=== PATIENT | female | born 1970 | race Caucasian/White ===

== ENCOUNTER 2022-03-14 09:34 | Observation (INO) ==
[2022-03-14] MEDS ORDERED: NS 0.9% 1000 ml BAG 1,000 ML IV ONE (11:22)
[2022-03-14] MEDS ORDERED: Ondansetron 4 mg VIAL 2 MG/ML 2 ml VIAL IV ONE (11:22)
[2022-03-14 11:55] LABS: ABS Basophils 0.1 10^3/ul (0-0.2); ABS Eosinophils 0.1 10^3/ul (0-0.6); ABS Lymphocytes 1.6 10^3/ul (1.0-4.8); ABS Neutrophils 13.2 10^3/ul (1.5-7.7); Eosinophil % 0.5 %; Hematocrit 35 % (35-47); Hemoglobin 11.5 g/dL (12.0-16.0); Mean Corpuscular HGB Conc 33 g/dL (31-36); Mean Corpuscular Hemoglobin 28 pg (27-31); Mean Corpuscular Volume 84 fL (80-97); Mean Platelet Volume 8.2 fL (7.4-10.4); Nucleated Red Blood Cells % 0.1; Platelet Count 310 10^3/uL (150-450); Red Blood Count 4.17 10^6 /uL (3.70-4.87); Red Cell Distribution Width 14 % (10-15)
[2022-03-14 11:57] LABS: Urine Appearance Clear; Urine Bilirubin Negative (Negative); Urine Blood Negative (Negative); Urine Color Yellow; Urine Glucose Negative (Negative); Urine Ketones Negative (Negative); Urine Nitrite Negative (Negative); Urine Protein Negative (Negative); Urine Specific Gravity 1.009 (1.002-1.030); Urine Urobilinogen Negative (Negative)
[2022-03-14 12:57] LABS: ALT 26 U/L (7-52); AST 28 U/L (13-39); Albumin 4.1 g/dL (3.2-5.2); Albumin/Globulin Ratio 1.5 (1-3); Alkaline Phosphatase 84 U/L (35-149); Anion Gap 4 mmol/L (2-11); Blood Urea Nitrogen 8 mg/dL (6-24); CO2 Carbon Dioxide 28 mmol/L (22-32); Calcium 8.7 mg/dL (8.6-10.3); Chloride 104 mmol/L (101-111); Globulin 2.8 g/dL (2-4); Glucose 93 mg/dL (70-100); Lipase < 10 U/L (11.0-82.0); Potassium 3.6 mmol/L (3.5-5.0); Sodium 136 mmol/L (135-145); Total Protein 6.9 g/dL (6.4-8.9); eGFR CKD-EPI 104.7 (>60)
[2022-03-14 13:03] LABS: HCG Pregnancy < 0.60 mIU/mL
[2022-03-14] MEDS ORDERED: Iohexol 300 (CONTRAST) 10 ML SDV IV ONE (13:03)
[2022-03-14] MEDS ORDERED: Piperacillin/Tazobac ADVAN 3.375 GM in NS 0.9% 100 ml BAG 100 ML IV ONE (14:58)
[2022-03-14] MEDS ORDERED: Ondansetron 4 mg VIAL 2 MG/ML 2 ml VIAL IV PRN (15:50)
[2022-03-14] MEDS ORDERED: Zosyn per Pharmacy NOTE FOLLOW UP SCH (16:00)
[2022-03-14] MEDS: NS 0.9% 1000 ml BAG 1,000 ML IV SCH (16:19)
[2022-03-14] MEDS ORDERED: ZOSYN 3.375 GM per EXTENDED INFUSION IV ONE (19:30)
[2022-03-14] MEDS: ZOSYN 3.375 GM Q8H per EXTENDED INFUSION IV SCH (20:42)
[2022-03-15] MEDS: ZOSYN 3.375 GM Q8H per EXTENDED INFUSION IV SCH ×3 (03:48→19:40)
[2022-03-15 05:26] LABS: ABS Eosinophils 0.3 10^3/ul (0-0.6); ABS Lymphocytes 1.7 10^3/ul (1.0-4.8); ABS Monocytes 0.6 10^3/ul (0-0.8); Hematocrit 30 % (35-47); Lymphocyte % 17.4 %; Mean Corpuscular HGB Conc 34 g/dL (31-36); Mean Corpuscular Hemoglobin 28 pg (27-31); Mean Corpuscular Volume 84 fL (80-97); Platelet Count 257 10^3/uL (150-450); Red Blood Count 3.55 10^6 /uL (3.70-4.87); Red Cell Distribution Width 14 % (10-15); White Blood Count 9.5 10^3/uL (3.5-10.8)
[2022-03-15 06:20] LABS: Calcium 7.8 mg/dL (8.6-10.3); Potassium 3.8 mmol/L (3.5-5.0); eGFR CKD-EPI 102.2 (>60)
[2022-03-15] MEDS: Cholecalciferol (VIT D3) 1,000 unit TAB PO SCH (08:47)
[2022-03-15] MEDS: NS 0.9% 1000 ml BAG 1,000 ML IV SCH (08:49)
[2022-03-15] MEDS: Polyethylene Glycol 3350 17 GM PACKET PO SCH (12:32)
[2022-03-15] MEDS: Morphine 2 MG/ML SYRINGE IV PRN (12:33)
[2022-03-16] MEDS: NS 0.9% 1000 ml BAG 1,000 ML IV SCH ×2 (01:37→15:06)
[2022-03-16] MEDS: ZOSYN 3.375 GM Q8H per EXTENDED INFUSION IV SCH ×3 (03:36→20:52)
[2022-03-16 06:05] LABS: ABS Basophils 0.1 10^3/ul (0-0.2); ABS Eosinophils 0.3 10^3/ul (0-0.6); ABS Lymphocytes 1.7 10^3/ul (1.0-4.8); ABS Monocytes 0.5 10^3/ul (0-0.8); ABS Neutrophils 5.9 10^3/ul (1.5-7.7); Hematocrit 29 % (35-47); Hemoglobin 9.8 g/dL (12.0-16.0); Lymphocyte % 19.7 %; Mean Corpuscular HGB Conc 33 g/dL (31-36); Mean Corpuscular Hemoglobin 28 pg (27-31); Mean Corpuscular Volume 84 fL (80-97); Mean Platelet Volume 8.1 fL (7.4-10.4); Platelet Count 274 10^3/uL (150-450); Red Cell Distribution Width 15 % (10-15); White Blood Count 8.4 10^3/uL (3.5-10.8)
[2022-03-16 06:38] LABS: Calcium 8.2 mg/dL (8.6-10.3); Potassium 4.1 mmol/L (3.5-5.0); eGFR CKD-EPI 104.7 (>60)
[2022-03-16] MEDS: Cholecalciferol (VIT D3) 1,000 unit TAB PO SCH (08:47)
[2022-03-16] MEDS: Polyethylene Glycol 3350 17 GM PACKET PO SCH (08:48)
[2022-03-16] MEDS ORDERED: Magnesium Hydroxide LIQ 30 ML UDC PO PRN (14:46)
[2022-03-16] MEDS: Morphine 2 MG/ML SYRINGE IV PRN (20:47)
[2022-03-16] MEDS ORDERED: Senna TAB 8.6 mg TAB PO SCH (21:00)
[2022-03-17] MEDS: ZOSYN 3.375 GM Q8H per EXTENDED INFUSION IV SCH (03:59)
[2022-03-17 07:38] LABS: ABS Basophils 0.1 10^3/ul (0-0.2); ABS Eosinophils 0.3 10^3/ul (0-0.6); ABS Lymphocytes 1.3 10^3/ul (1.0-4.8); ABS Monocytes 0.4 10^3/ul (0-0.8); ABS Neutrophils 6.2 10^3/ul (1.5-7.7); Eosinophil % 3.3 %; Hematocrit 31 % (35-47); Hemoglobin 10.4 g/dL (12.0-16.0); Mean Corpuscular HGB Conc 33 g/dL (31-36); Mean Corpuscular Hemoglobin 28 pg (27-31); Mean Corpuscular Volume 83 fL (80-97); Platelet Count 338 10^3/uL (150-450); Red Blood Count 3.75 10^6 /uL (3.70-4.87); Red Cell Distribution Width 14 % (10-15); White Blood Count 8.2 10^3/uL (3.5-10.8)
[2022-03-17 08:08] LABS: Calcium 8.5 mg/dL (8.6-10.3); eGFR CKD-EPI 91.3 (>60)
[2022-03-17 08:49] VITALS: BP 115/73
[2022-03-17] MEDS: Polyethylene Glycol 3350 17 GM PACKET PO SCH (09:04)
[2022-03-17] MEDS: Cholecalciferol (VIT D3) 1,000 unit TAB PO SCH (09:05)
== END 2022-03-17 11:15 | disposition home or self-care (01) ==
LOC: EDHOLD 09:34 → ED 09:34 → SUATTDRO 15:50 → MED 19:50
PROVIDERS: ADMIT Internal Medicine; ATTEND Hospitalist